=== PATIENT | female | born 1995 | race Caucasian/White ===

== ENCOUNTER 2019-02-14 12:16 | Emergency (ER) | payer OTHER ==
[~2019-02-14] VITALS: Ht 170.2 cm; Wt 122.8 kg
[2019-02-14 12:17] VITALS: BP 135/78
--- NOTE | 2019-02-14 14:27 | REP ---
RIGHT FOOT, TWO VIEWS: There is no evidence of an acute fracture, dislocation or intrinsic bone disease. IMPRESSION: No fracture or dislocation. Electronically Signed by Thaddeus Ramsey MD 02/15/2019 12:01 A
--- NOTE | 2019-02-14 14:28 | REP ---
RIGHT FOREARM, TWO VIEWS: There is no evidence of an acute fracture, dislocation or intrinsic bone disease. IMPRESSION: No fracture or dislocation. Electronically Signed by Thaddeus Ramsey MD 02/15/2019 12:01 A
== END 2019-02-14 14:17 | disposition home or self-care (01) ==
LOC: M ED 12:16
DX: O9A.211 Injury, poisoning and certain other consequences of external causes complicating pregnancy, first trimester (principal); S90.31XA Contusion of right foot, initial encounter; S59.912A Unspecified injury of left forearm, initial encounter; W01.198A Fall on same level from slipping, tripping and stumbling with subsequent striking against other object, initial encounter; Y92.098 Other place in other non-institutional residence as the place of occurrence of the external cause; Y93.K1 Activity, walking an animal; Z3A.13 13 weeks gestation of pregnancy; Z91.041 Radiographic dye allergy status

== ENCOUNTER 2019-08-05 14:50 | Inpatient (IN) | payer OTHER ==
[~2019-08-05] VITALS: Ht 170.2 cm; Wt 146.3 kg
[2019-08-05] VITALS (35 sets, daily range): BP systolic 138–170; BP diastolic 78–104
[2019-08-05] MEDS ORDERED: PRENTAB9 PO (15:17)
[2019-08-05 16:27] LABS: HEMATOCRIT 36.8 % (36.0-47.0); HEMOGLOBIN 11.7 g/dl (12.0-15.5); MEAN CORPUSCULAR HEMOGLOBIN 27.4 pg (27.0-33.0); MEAN CORPUSCULAR HGB CONC 31.8 g/dl (32.0-36.5); MEAN CORPUSCULAR VOLUME 86.2 fl (80.0-96.0); PLATELET COUNT, AUTOMATED 272 10^3/uL (150-450); RED BLOOD COUNT 4.27 10^6/uL (4.00-5.40)
[2019-08-05 16:59] LABS: CREATININE,RANDOM URINE 39.2 MG/DL; TOTAL PROTEIN,RANDOM URINE 249.4 MG/DL (0.0-12.0)
[2019-08-05 17:05] LABS: ALT/SGPT 12 U/L (12-78); BILIRUBIN,TOTAL < 0.1 MG/DL (0.2-1.0); CREATININE FOR GFR 0.99 MG/DL (0.55-1.30); GLOMERULAR FILTRATION RATE > 60.0 (>60); LDH LACTATE DEHYDROGENASE 171 U/L (84-246); URIC ACID 7.8 MG/DL (2.6-6.0)
[2019-08-05] MEDS ORDERED: MAG Sulf (L&D) 4 GM/100 ML 4 GM in IV 1 EA IV ONE (17:15)
[2019-08-05] MEDS ORDERED: CALCIUM GLUCONATE 1,000 MG in D5W MINI-BAG PLUS 100 ML IV PRN (17:15)
[2019-08-05] MEDS ORDERED: MAGNESIUM *L&D* 4 GM/100 ML BAG (40MG/ML) (J3475) As Ordered ONE (17:16)
[2019-08-05] MEDS ORDERED: MAGNESIUM SULFATE 4% INJ 20GM/500ML (40MG/ML) (J3475) As Ordered ONE (17:17)
[2019-08-05] MEDS: LR 1,000 ML IV SCH (17:26)
[2019-08-05] MEDS: MAG Sulf (OBGYN) 20GM/500ML 20,000 MG in IV 1 EA IV SCH (18:04)
[2019-08-05] MEDS: ACETAMINOPHEN 500 MG TAB PO PRN (18:52)
[2019-08-05] MEDS ORDERED: LABETALOL HCL 100 MG/20 ML VIAL IV STA (19:09)
[2019-08-05] MEDS ORDERED: OXYTOCIN DRIP 30 UNITS in IV 1 EA IV SCH (19:15)
--- NOTE | 2019-08-05 21:02 | IPN ---
DATE: 08/05/2019 This lady was admitted with a history of severe range blood pressures and preeclampsia (pre E). She has been medicated with magnesium (mag) sulfate, Cobb catheter in place, one episodic elevated blood pressure got her 20 mg of labetalol IV. Now that she has quieted down and stabilized her blood pressures, pelvic examination reveals little pinky show, vertex is -3 but 70% effaced. Surprisingly, vertex thin, cervix 2 cm dilated. She is very favorable for Pitocin. We did not put a Cobb bulb in as we did not want to over stimulate her at the present time. We discussed pain management in the form of epidural, and we will adhere to the hypertensive protocol if required for the next IV antihypertensive medications. Last blood pressure was 152/85, respirations 18, heart rate was 99.
[2019-08-06] VITALS (77 sets, daily range): BP systolic 83–161; BP diastolic 48–100
[2019-08-06] MEDS: ACETAMINOPHEN 500 MG TAB PO PRN ×2 (00:25→06:39)
[2019-08-06 00:31] LABS: HEMATOCRIT 34.7 % (36.0-47.0); HEMOGLOBIN 11.3 g/dl (12.0-15.5); MEAN CORPUSCULAR HGB CONC 32.6 g/dl (32.0-36.5); MEAN CORPUSCULAR VOLUME 86.1 fl (80.0-96.0); PLATELET COUNT, AUTOMATED 252 10^3/uL (150-450); RED BLOOD COUNT 4.03 10^6/uL (4.00-5.40); WHITE BLOOD COUNT 13.7 10^3/uL (4.0-10.0)
[2019-08-06] MEDS: MAG Sulf (OBGYN) 20GM/500ML 20,000 MG in IV 1 EA IV SCH ×2 (02:37→12:25)
[2019-08-06] MEDS: LR 1,000 ML IV SCH ×3 (06:17→17:08)
--- NOTE | 2019-08-06 08:42 | HPE ---
DATE OF ADMISSION: 08/05/2019 This lady is a 23-year-old, 1, para 0, last menstrual period (LMP) 11/11/2018, estimated date of confinement (EDC) 08/18/2019, at 38 and 2 weeks of gestation with a history of an elevated blood pressure at her visit, which was 143/103 and 171/106. She had a mild headache. No visual disturbances. No right upper quadrant pain. She was sent to labor and delivery. On admission, her blood pressure is 164/104, respirations are 18, pulse 101, and temperature is 98.4. She had suggested features of pre eclampsia (E) with possibly a seizure component eminent because of elevated blood pressure. She did have some erratic movements of her hands and legs but those were sporadic in nature. Her risk factors are her body mass index (BMI) is 50.5, she has signs of severe pre E with severe range blood pressures. She has an elevated 1-hour blood glucose and she had a 3-hour DROP. She was not monitoring her blood sugars. 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 The baby was at the 62nd percentile for gestational age and it was 2846 grams +/- 500 grams confirming her WADE of 08/18/2019. Amniotic fluid index was normal, 18.69. Her lab values showed ranges of her blood pressure in her stay from 1600 hours to 1900 hours of 143/92, 158/97, 146/78, 146/86. She had a 150/92, 170/104 when they attempted to put the Cobb catheter in, 144/89, 164/87. She had 20 mg of labetalol IV when she had an elevated blood pressure 164 /94 and subsequent blood pressure monitoring 10 minutes and 15 minutes later blood pressure was 147/82 and 147/79. She had a mild headache, for which she was given Tylenol 1000 mg. Her urine was 1.005, pH of 7, and 3+ protein. Her hemoglobin 11.7, hematocrit 36.8, and platelets were 272. Uric acid was 7.8. GFR was greater than 60. Liver function was normal. Her ytgofgm-at-pemkusncjm (P/C) ratio was 6.36. On examination, she did not appear distressed. She did not have any aura or visual disturbances. She had no right upper quadrant pain. She has quite dependent edema in her abdomen somewhat like peau d'orange secondary to her weight and her increased weight gain of 22 pounds over the last few weeks. She has bilateral edema from her ankles to her knees. She has 3+ pitting edema on both sides. Reflexes upper were normal, lower were normal, but she does have 2 beats of clonus on her left and 3 beats of clonus on her right. Presently, she has a category 1 strip. No vaginal loss or bleeding. Pelvic examination is deferred until the magnesium (mag) sulfate is on board and running. Our differential diagnosis is that she has preeclampsia with severe blood pressure features, she is at 38 weeks, ultrasound shows anomalies. Our plan of care is to admit for induction of labor, initiate hypertensive protocol for blood pressures 160/100, monitor reflexes for increase in clonus, have available at the bedside suction oxygen, have a crash cart, anesthetic cart at the bedside, Cobb catheter inserted and urometer monitoring urine flow and notify if it is less than 30 mL/h. Medications for her headache in the form Tylenol. Limited activity with subdued lighting. Sequentials in place. Two lines of a hemorrhage that she has hemorrhaged are times two, one for IV meds and one in case needed. Nothing by mouth at the present time. Mag sulfate was initiated with 4 grams of a loading dose and 2 gm/h. We will monitor her mag level on a 4 hourly basis, as well as her complete blood count (CBC) in order to evaluate if there is a suggestion of hemolysis, elevated liver enzymes, low platelet count (HELLP) syndrome or disseminated intravascular coagulation (DIC) or any progression in her preeclampsia. We notified anesthesia with intubation and tubes present and available. We notified neonatology regarding two-vessel cord and clubfoot. We initiated the hypertensive protocol hemorrhage, risk protocol, seizure protocol. Pharmacies been notified, and we have diazepam in place 5-10 mg IV every 5-10 with a maximum of 30, Ativan 2-4 mg times one with one repeat. We can still initiate 2 grams of mag sulfate slow if she has still protracted seizures. If she has persistent seizures intubation will take place, and at the present time, induction of labor is indicated. section is not an initial indication because of severe preeclampsia at this present time. We are planning on having a mag level being therapeutic between 5-9, initiating patellar reflexes, if they are greater than 9 will cut back the mag. If there is respiratory distress or paralysis, obviously she is over 12 mg/dL. We discussed the plan of care with the patient and her . Initially, we talked about consent for vaginal delivery, which is a possible vaginal delivery, and forceps or vacuum or devices used for maternal or indications that can assist with vaginal delivery when normal pushing efforts cannot achieve delivery on their own or when delivery is needed in emergency for baby's well-being, medications used to induce or augment labor could be possibly Pitocin, Cytotec, Cobb bulb with Cytotec which will be evaluated as a method of induction of labor shortly. At delivery, she may have an episiotomy or may have lacerations or tears of the vagina that may require repair in emergency situations such as seizure activity. She may have an emergency section, which we are discussing at the present time because if intubation takes place will no longer be able to communicate that to her but to her partner, and of course is only performed for maternal or indications. Risk of delivery is not limited to bleeding, infection, injury to the vagina, pelvic structures, injury to baby, damage to the uterus, reaction to anesthesia, uterine rupture, risk of hysterectomy for life-threatening bleeding situations, heart rate abnormalities, perineal or vaginal lacerations, risk of urinary bowel incontinence, and risk to the baby regarding bruising, scratches, hematomas or intracranial bleed. The patient expressed understanding of the plan of care and the risk factors involved. The rest of the examination was unremarkable. She had a category 1 strip. She was normocephalic, atraumatic. Neck full range of motion. Pupils were equal and reactive to light. She had distal pulses that were symmetric. No evidence of deep venous thrombosis (DVT), pulmonary embolism (PE) or superficial phlebitis. Chest was clear bilaterally to bases. No wheezes or rhonchi. No costovertebral angle (CVA) tenderness. Abdomen as described. Pelvic examination deferred until later. She has no rashes, lesions or pruritus. She does have tattoos. No arthralgia, myalgia or complaint joint pain. No complaint of cough, wheeze, shortness breath or dyspnea on exertion. No bruising. Not bleeding. Neuro complete. No incontinency, urgency or frequency. No nausea, vomiting, diarrhea or constipation. It is suggested that with her elevated 3-hour GTT that she have a glucose evaluation. She has never had an abnormal Pap smear and no evidence sexually transmitted disease (STD). She did have a urinary tract infection (UTI) with E-coli treated and test of cure is pending. She has does not smoke, drink, abuse drugs. 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 No domestic violence. She has ALLERGIES to IVP DYE. In summary, we have an early term gestation with evidence of severe range blood pressures and a history of preeclampsia for monitoring and induction of labor. We spent well over an hour and 30 minutes in evaluation, discussion, and patient expressed understanding the plan of care.
[2019-08-06 09:41] LABS: HEMATOCRIT 33.4 % (36.0-47.0); HEMOGLOBIN 10.5 g/dl (12.0-15.5); MEAN CORPUSCULAR HEMOGLOBIN 27.3 pg (27.0-33.0); MEAN CORPUSCULAR HGB CONC 31.4 g/dl (32.0-36.5); MEAN CORPUSCULAR VOLUME 86.8 fl (80.0-96.0); PLATELET COUNT, AUTOMATED 247 10^3/uL (150-450); RED BLOOD COUNT 3.85 10^6/uL (4.00-5.40); WHITE BLOOD COUNT 14.1 10^3/uL (4.0-10.0)
[2019-08-06] MEDS ORDERED: FENTANYL 2MCG/ML ROPIVACAINE 0.2% IN 0.9% NACL 100ML IVBAG As Ordered ONE (09:47)
[2019-08-06 10:13] LABS: ALBUMIN 1.7 GM/DL (3.2-5.2); ALT/SGPT 12 U/L (12-78); BLOOD UREA NITROGEN 11 MG/DL (7-18); CALCIUM LEVEL 7.7 MG/DL (8.5-10.1); CARBON DIOXIDE LEVEL 21 MEQ/L (21-32); CHLORIDE LEVEL 103 MEQ/L (98-107); CREATININE FOR GFR 1.16 MG/DL (0.55-1.30); GLOMERULAR FILTRATION RATE > 60.0 (>60); GLUCOSE, FASTING 124 MG/DL (70-100); POTASSIUM SERUM 3.9 MEQ/L (3.5-5.1); SODIUM LEVEL 136 MEQ/L (136-145); TOTAL PROTEIN 5.7 GM/DL (6.4-8.2)
[2019-08-06] MEDS: FENTANYL/ROPIVACAINE/NACL BAG 100 ML EPIDURAL SCH ×2 (10:48→22:00)
[2019-08-06 10:52] LABS: BILIRUBIN,TOTAL < 0.1 MG/DL (0.2-1.0)
--- NOTE | 2019-08-06 11:04 | IPN ---
DATE: 08/06/2019 This lady was admitted with a history of mid to severe range blood pressures, headache, no visual disturbances, and a diagnosis of preeclampsia with severe features. She was admitted and had full hypertensive protocol, full hemorrhage protocol and full seizure protocol. She was given one lot of labetalol IV and subsequent to that her blood pressures have normalized, and since 0300 hours her blood pressures have all been normal ranging from 119/60 to 120/62 to 122/66 to 109/70 to 122/68. She has been afebrile throughout. She has been on Pitocin. She is at 20 milliunits, and she is feeling moderate contractions. She has a category 1 strip, and she has had a total urine output of 1795 and her hourly output lowest is 30, and after that she began to diurese. Our plan is to continue with the Pitocin with epidural in place to do an artifical rupture of membranes (AROM), and we anticipate some progress. In summary, we have a 38+ week of gestation was admitted with severe range blood pressures and all protocols were initiated safe to proceed.
[2019-08-06] MEDS ORDERED: REFRIGERATOR IV KEYS XX PRN (12:00)
[2019-08-06] MEDS ORDERED: LACTATED RINGER'S 1000 ML IV PRN (12:00)
[2019-08-06] MEDS ORDERED: diphenhydrAMINE INJ 50MG/ML VIAL (J1200) IV PRN ×2 (12:00→22:48)
[2019-08-06] MEDS ORDERED: EPIDURAL COMMENT XX SCH (12:00)
[2019-08-06] MEDS ORDERED: ePHEDrine SULFATE 25 MG/5 ML(5MG/ML) SYRINGE IV PRN (12:00)
[2019-08-06] MEDS ORDERED: ONDANSETRON 4MG/2ML VIAL (J2405) IV PRN ×2 (12:00→22:48)
[2019-08-06] MEDS ORDERED: EPIDURAL/PCA KEYS XX PRN (12:00)
[2019-08-06] MEDS ORDERED: NALOXONE INJ 0.4 MG/1 ML VIAL (J2310) IV PRN ×3 (12:00→22:48)
[2019-08-06] MEDS ORDERED: OXYTOCIN 30 UNITS IN 0.9% NaCl 500ML IV BAG (J2590) As Ordered ONE (22:05)
[2019-08-06] MEDS ORDERED: LIDOCAINE 2% W/EPIN INJ 20ML **PRES FREE As Ordered ONE (22:20)
[2019-08-06] MEDS ORDERED: ONDANSETRON 4MG/2ML VIAL (J2405) As Ordered ONE (22:20)
[2019-08-06] MEDS ORDERED: fentaNYL 100 MCG/2 ML INJECTION (J3010) As Ordered ONE (22:23)
[2019-08-06] MEDS ORDERED: ceFAZolin 1GM INJ (J0690 PER 500MG) As Ordered ONE (22:25)
[2019-08-06] MEDS ORDERED: OXYTOCIN INJ 10 UNITS/ML VIAL (J2590) As Ordered ONE (22:25)
[2019-08-06] MEDS ORDERED: AZITHROMYCIN INJ 500MG VIAL (J0456) As Ordered ONE (22:26)
[2019-08-06] MEDS ORDERED: AZITHROMYCIN INJ 500 MG, VIAL MATE ADAPTER 1 EACH in D5W 250 ML IV ONE (22:30)
[2019-08-06] MEDS ORDERED: BICITRA 30ML SOLN UDC PO ONE (22:30)
[2019-08-06] MEDS ORDERED: ceFAZolin SOD 2 GM in IV 1 EA IV ONE (22:30)
[2019-08-06] MEDS ORDERED: ceFAZolin SOD 1 GM in D5W MINI-BAG PLUS 50 ML IV ONE (22:45)
[2019-08-06] MEDS ORDERED: NALBUPHINE HCL 10 MG/ML AMP (J2300) IV PRN (22:48)
[2019-08-06] MEDS ORDERED: METOCLOPRAMIDE INJ 10MG/2ML VIAL (J2765) IV PRN (22:48)
[2019-08-06 23:38] LABS: CORD GAS ABE A -4.7; CORD GAS HCO3 A 25.8 MEQ/L; CORD GAS O2 SAT A 28.5 %; CORD GAS PCO2 A 69.3 mmHg; CORD GAS PH A 7.188 UNITS; CORD GAS PO2 A 16.5 mmHg; CORD GAS SBC A 18.8 MEQ/L; CORD GAS TCO2 A 27.9 MEQ/L
[2019-08-06 23:39] LABS: CORD GAS ABE V -5.7; CORD GAS HCO3 V 22.6 MEQ/L; CORD GAS O2 SAT V 65.3 %; CORD GAS PCO2 V 53.7 mmHg; CORD GAS PH V 7.242 UNITS; CORD GAS PO2 V 31.2 mmHg; CORD GAS TCO2 V 24.2 MEQ/L
[2019-08-06] MEDS ORDERED: miSOPROStol 200 MCG TAB (S0191) As Ordered ONE (23:50)
[2019-08-07] VITALS (37 sets, daily range): BP systolic 108–156; BP diastolic 52–96
[2019-08-07] MEDS ORDERED: MORPHINE PRES-FREE INJ 10 MG/10 ML VIAL (J2274) As Ordered ONE (00:03)
[2019-08-07] MEDS ORDERED: PHENYLephrine HCL 500 MCG/5 ML (100MCG/ML) SYRINGE (J2370) As Ordered ONE (00:19)
[2019-08-07] MEDS ORDERED: ePHEDrine SULFATE 25 MG/5 ML(5MG/ML) SYRINGE As Ordered ONE (00:19)
[2019-08-07] MEDS ORDERED: fentaNYL 100 MCG/2 ML INJECTION (J3010) IV PRN (00:30)
[2019-08-07] MEDS ORDERED: PERCOCET 5MG/325MG TAB PO PRN ×2 (00:30→01:00)
[2019-08-07] MEDS ORDERED: ONDANSETRON 4MG/2ML VIAL (J2405) IV PRN (00:30)
[2019-08-07] MEDS ORDERED: METOCLOPRAMIDE INJ 10MG/2ML VIAL (J2765) IV PRN (00:30)
[2019-08-07] MEDS ORDERED: LR 1,000 ML IV SCH (00:30)
[2019-08-07] MEDS ORDERED: OXYTOCIN DRIP 30 UNITS in IV 1 EA IV SCH (00:48)
[2019-08-07] MEDS ORDERED: MEASLES,MUMPS,RUBELLA VACCINE INJ (MMR-II) (90707) SC SCH (01:00)
[2019-08-07] MEDS ORDERED: RHOGAM 300 MCG (1500 IU) INJ (J2790) IM SCH (01:00)
[2019-08-07] MEDS ORDERED: miSOPROStol 200 MCG TAB (S0191) PR ONE (01:00)
[2019-08-07] MEDS ORDERED: fentaNYL 100 MCG/2 ML INJECTION (J3010) As Ordered ONE (01:12)
[2019-08-07] MEDS ORDERED: PERCOCET 5MG/325MG TAB As Ordered ONE (01:45)
[2019-08-07] MEDS: LR 1,000 ML IV SCH ×3 (03:49→23:45)
[2019-08-07] MEDS: MAG SULF IV SCH ×2 (03:49→21:00)
[2019-08-07] MEDS: KETOROLAC 30 MG/ML VIAL (J1885) IV SCH ×3 (03:50→18:04)
[2019-08-07] MEDS: ENOXAPARIN 40 MG/0.4 ML SYRINGE (J1650) SC SCH ×2 (05:33→17:24)
[2019-08-07 08:16] LABS: HEMATOCRIT 32.4 % (36.0-47.0); HEMOGLOBIN 10.4 g/dl (12.0-15.5); MEAN CORPUSCULAR HEMOGLOBIN 27.8 pg (27.0-33.0); MEAN CORPUSCULAR HGB CONC 32.1 g/dl (32.0-36.5); MEAN CORPUSCULAR VOLUME 86.6 fl (80.0-96.0); PLATELET COUNT, AUTOMATED 252 10^3/uL (150-450); RED BLOOD COUNT 3.74 10^6/uL (4.00-5.40); WHITE BLOOD COUNT 17.6 10^3/uL (4.0-10.0)
[2019-08-07] MEDS: DOCUSATE SODIUM 100 MG CAP PO SCH ×2 (08:57→21:23)
[2019-08-07] MEDS: PRENATAL VITAMINS CHEWABLE TABLET PO SCH (08:57)
[2019-08-07 08:59] LABS: ALBUMIN 1.7 GM/DL (3.2-5.2); BILIRUBIN,TOTAL 0.1 MG/DL (0.2-1.0); CALCIUM LEVEL 6.8 MG/DL (8.5-10.1); CREATININE FOR GFR 1.25 MG/DL (0.55-1.30); GLOMERULAR FILTRATION RATE 56.1 (>60); POTASSIUM SERUM 4.7 MEQ/L (3.5-5.1); TOTAL PROTEIN 4.8 GM/DL (6.4-8.2)
[2019-08-07] MEDS ORDERED: LACTATED RINGER'S 1000 ML IV ONE (11:30)
--- NOTE | 2019-08-07 12:25 | IPNPDOC ---
Progress Note Date of Service: Aug 07, 2019 Day#: 1 Progress Note POD/PPD 1 SUBJECT: Dane is a 23yo s/p uncomplicated PLTCS at 23:27 on 08/06/2019 for arrest of descent while undergoing IOL for pre-eclampsia with severe features based on severe range bp's (which normalized with initiation of IV MgSO4) and urine:protein of 6.36 as well as creatinine 0.99 and uric acid 7.8. Significantly, her BMI is 50. She is currently receiving 24hr IV MgSO4 on L&D, and is doing well day # 1. EBL was 700ml. She has not yet ambulated (bedrest while on MgSO4), has gomez catheter in place draining yellow clear urine, and she has tolerated liquids thus far. No ESCOBAR/vision changes/RUQ pain. Breast feeding without issue. Light/moderate lochia. Pain so far is very well controlled. No f/c/n/v/CP/SOB. OBJECTIVE: VITAL SIGNS: Within normal limits, afebrile. Alert and oriented times three. Abdomen: Obese. Fundus firm at U. Soft, appropriately tender to palpation with NO rebound/guarding. Pfannensteil incision is covered by clean/dry optifoam dressing with tiny area of strikethrough in the center of the dressing. Extremities: SCDs on and functioning, no pain with palpation of calves UOP: recently 60cc --> 45cc --> 30cc Labs: 08/05: WBC 13, H/H 16.7/36.8, plt 272 creatinine 0.99 and uric acid 7.8 LFTs wnl 08/06: WBC 14.1, H/H 10.5/33.4, plt 247 creatinine 1.16 LFTs wnl 08/07: WBC 17.6, H/H 10.4/32.4, plt 252 creatinine 1.25 LFTs wnl ASSESSMENT: Dane is a 23yo s/p uncomplicated PLTCS at 23:27 on 08/06/2019 for arrest of descent while undergoing IOL for pre-eclampsia with severe features. Significantly, her BMI is 50. She is currently receiving 24hr IV MgSO4 on L&D, and is doing well day # 1. BP has been normotensive to rare mild range, afebrile, hemodynamically stable with no evidence of infection. No s/sx of worsening pre-E. Urine output has been dropping off a bit recently, patient encouraged to increase PO hydration and she is receiving IVF with the MgSO4, her creatinine is also very slightly increasing over her admission. PLAN: 1. Routine and post-op care, continue IV MgSO4 on L&D until 24hr /post-op. Neuro checks. 2. Toradol (then Motrin) and prn percocet for pain. 3. Lovenox 40mg BID for prophylaxis given patient's BMI and post-op status 4. Eye to urine output today and creatinine. Remove gomez catheter when MgSO4 is discontinued with 4hr due to void 5. Encourage breast feeding 6. CBC and CMP q12hr 7. Regular diet 8. Pt has optifoam dressing which will stay in place for [address] Aissatou Sotelo MD VS, I&O, 24H, Fishbone Vital Signs/I&O Vital Signs Date Time Temp Pulse Resp B/P (MAP) Pulse Ox O2 Delivery O2 Flow Rate FiO2 08/07/19 11:08 98.1 82 16 117/55 (75) 08/07/19 01:52 100 08/07/19 00:38 Room Air I&O- Last 24 Hours up to 6 AM 08/07/19 06:00 Intake Total 3798.0 ml Output Total 3770 ml Balance 28.0 ml Laboratory Data 24H LABS Laboratory Tests 2 08/06/19 23:29: Cord Arterial Blood pH 7.188, Cord Arterial Blood PCO2 69.3, Cord Arterial Blood PO2 16.5, Cord Arterial Blood HCO3 25.8, Cord Arterial Blood Total CO2 27.9, Cord Arterial Blood Base Excess -4.7, Cord Arterial Base Excess (Standard 18.8, Cord Arterial Bld Oxygen Saturation 28.5, Cord Venous Blood pH 7.242, Cord Venous Blood PCO2 53.7, Cord Venous Blood PO2 31.2, Cord Venous Blood HCO3 22.6, Cord Venous Blood Total CO2 24.2, Cord Venous Base Excess (Actual) -5.7, Cord Venous Base Excess (Standard) 19.0, Cord Venous Blood Oxygen Saturation 65.3 08/07/19 08:05: Nucleated Red Blood Cells % (auto) 0.0, Anion Gap 13, Glomerular Filtration Rate 56.1L, Calcium Level 6.8L, Total Bilirubin 0.1L, Aspartate Amino Transf (AST/SGOT) 22, Alanine Aminotransferase (ALT/SGPT) 15, Alkaline Phosphatase 118H, Total Protein 4.8L, Albumin 1.7L, Albumin/Globulin Ratio 0.55L CBC/BMP Laboratory Tests 08/07/19 08:05 Aissatou Sotelo MD Aug 07, 2019 12:25
--- NOTE | 2019-08-07 12:50 | IPNPDOC ---
Text Note Date of Service The patient was seen on 08/07/19. NOTE LATE ENTRY FOR INTRAPARTUM CHARTING DUE TO BUSY L&D, CLINIC, AND CALL PAGER ON 08/06. FOR ENCOUNTER NOTE FOR TODAY, SEE PROGRESS NOTE I accepted care of Dane AT 07:30 on 08/[address] Irizarry. In brief, (when I assumed care), pt was a 23yo undergoing IOL for pre- eclampsia with severe features based on severe range bp's (which normalized with initiation of IV MgSO4) and urine:protein of 6.36 as well as creatinine 0.99 and uric acid 7.8 (LFTs were wnl). Significantly, her BMI is 50. She was undergoing IOL with IV pitocin. Over the course of the day, she progressed with pitocin and amniotomy (receiving epidural in labor) to C/C/0 at which point she began pushing. FSE and IUPC had been placed with amniotomy given her body habitus. FHRT remained Cat I throughout her labor course. Amniotic fluid was always clear. She never required any IV anti-hypertensive medications beyond the one dose she was previously ordered by Dr. Irizarry. Patient pushed with good maternal effort for over 2hr altogether and had no further gain in station beyond C/C/0, at which point I counseled her regarding need for a section. We went over the consent form for both PLTCS and possible blood transfusion, fully discussing all r/b/a, and both patie nt and I signed the consent forms. She was given 3g IV anceph and 500mg IV azithromycin for pre-op abx prophylaxis. Dr. Padilla was present to assist me for the surgery and the surgery was uncomplicated. See my dictated operative report for further details. MD GEOVANI Ames Fishbone, I+O Jesusita OLIVO I+O Laboratory Tests 08/07/19 08:05 Vital Signs Date Time Temp Pulse Resp B/P (MAP) Pulse Ox O2 Delivery O2 Flow Rate FiO2 08/07/19 11:08 98.1 82 16 117/55 (75) 08/07/19 01:52 100 08/07/19 00:38 Room Air I&O- Last 24 Hours up to 6 AM 08/07/19 06:00 Intake Total 3798.0 ml Output Total 3770 ml Balance 28.0 ml Aissatou Sotelo MD Aug 07, 2019 12:50
[2019-08-07 18:29] LABS: HEMATOCRIT 29.5 % (36.0-47.0); HEMOGLOBIN 9.3 g/dl (12.0-15.5); MEAN CORPUSCULAR HEMOGLOBIN 27.5 pg (27.0-33.0); MEAN CORPUSCULAR HGB CONC 31.5 g/dl (32.0-36.5); MEAN CORPUSCULAR VOLUME 87.3 fl (80.0-96.0); PLATELET COUNT, AUTOMATED 212 10^3/uL (150-450); RED BLOOD COUNT 3.38 10^6/uL (4.00-5.40); WHITE BLOOD COUNT 12.5 10^3/uL (4.0-10.0)
[2019-08-07 18:53] LABS: ALBUMIN 1.6 GM/DL (3.2-5.2); BILIRUBIN,TOTAL 0.1 MG/DL (0.2-1.0); CREATININE FOR GFR 1.19 MG/DL (0.55-1.30); GLOMERULAR FILTRATION RATE 59.3 (>60); POTASSIUM SERUM 4.2 MEQ/L (3.5-5.1); TOTAL PROTEIN 4.7 GM/DL (6.4-8.2); URIC ACID 9.3 MG/DL (2.6-6.0)
[2019-08-07 20:02] LABS: ALBUMIN 1.6 GM/DL (3.2-5.2); ALT/SGPT 13 U/L (12-78); BLOOD UREA NITROGEN 14 MG/DL (7-18); CALCIUM LEVEL 6.2 MG/DL (8.5-10.1); CARBON DIOXIDE LEVEL 22 MEQ/L (21-32); CHLORIDE LEVEL 100 MEQ/L (98-107); CREATININE FOR GFR 1.31 MG/DL (0.55-1.30); GLOMERULAR FILTRATION RATE 53.1 (>60); GLUCOSE, FASTING 120 MG/DL (70-100); SODIUM LEVEL 133 MEQ/L (136-145); TOTAL PROTEIN 5.4 GM/DL (6.4-8.2)
[2019-08-08] MEDS: KETOROLAC 30 MG/ML VIAL (J1885) IV SCH (00:33)
[2019-08-08 02:25] VITALS: BP 116/58
[2019-08-08] MEDS: ACETAMINOPHEN 500 MG TAB PO PRN (02:33)
[2019-08-08 04:27] LABS: BILIRUBIN,TOTAL < 0.1 MG/DL (0.2-1.0)
[2019-08-08] MEDS: ENOXAPARIN 40 MG/0.4 ML SYRINGE (J1650) SC SCH ×2 (05:28→16:50)
[2019-08-08 06:00] VITALS: BP 118/65
[2019-08-08 06:45] LABS: HEMATOCRIT 28.6 % (36.0-47.0); MEAN CORPUSCULAR HEMOGLOBIN 27.6 pg (27.0-33.0); MEAN CORPUSCULAR HGB CONC 31.5 g/dl (32.0-36.5); MEAN CORPUSCULAR VOLUME 87.7 fl (80.0-96.0); PLATELET COUNT, AUTOMATED 215 10^3/uL (150-450); RED BLOOD COUNT 3.26 10^6/uL (4.00-5.40); WHITE BLOOD COUNT 11.6 10^3/uL (4.0-10.0)
[2019-08-08 07:12] LABS: ALBUMIN 1.5 GM/DL (3.2-5.2); ALT/SGPT 15 U/L (12-78); BILIRUBIN,TOTAL 0.1 MG/DL (0.2-1.0); BLOOD UREA NITROGEN 14 MG/DL (7-18); CALCIUM LEVEL 5.9 MG/DL (8.5-10.1); CARBON DIOXIDE LEVEL 23 MEQ/L (21-32); CHLORIDE LEVEL 104 MEQ/L (98-107); CREATININE FOR GFR 1.06 MG/DL (0.55-1.30); GLOMERULAR FILTRATION RATE > 60.0 (>60); GLUCOSE, FASTING 77 MG/DL (70-100); POTASSIUM SERUM 4.2 MEQ/L (3.5-5.1); SODIUM LEVEL 136 MEQ/L (136-145); TOTAL PROTEIN 4.3 GM/DL (6.4-8.2)
[2019-08-08] MEDS: IBUPROFEN 800 MG TAB PO SCH ×2 (08:26→16:49)
[2019-08-08] MEDS: PRENATAL VITAMINS CHEWABLE TABLET PO SCH (08:26)
[2019-08-08] MEDS: DOCUSATE SODIUM 100 MG CAP PO SCH ×2 (08:26→23:22)
--- NOTE | 2019-08-08 09:37 | IPNPDOC ---
Progress Note Date of Service: Aug 08, 2019 Progress Note Dane is a 23 yo G1 now P1 who is POD#2 s/p uncomplicated PLTCS just before midnight on 06Aug2019 for arrest of descent after being admitted for an IOL for pre eclampsia with severe features. She completed 24 hours of IV magnesium last night ~0000. No acute events overnight. Dane reports feeling well this morning. She denies any headaches, RUQ pain, visual changes, or SOB. She has minimal pain at her incision. She is ambulating, voiding on her own, and tolerating a regular diet. She has had minimal lochia. Vitals - VSS, BPs mostly normal, occasionally mildly elevated, afebrile, non tachycardic General - AAOX3, sitting up in the chair at eating, pleasant and conversant, NAD Abdomen - Fundus firm at U-2. No fundal tenderness. Optifoam dressing in place over incision. Small area of strikethrough but not significant. Minimal t enderness to palpation. Extremities - 1+ edema in lower extremities UO - appropriate, voiding on own Labs: H/H and platelets stable Cr improving AST/ALT normal Dane is doing well this morning. Continue routine / postoperative care. Continue to encourage ambulation and IS use. Continue daily lovenox while inpatient. If BP remains stable and she meets all criteria she may be a c andidate for discharge home tomorrow. All questions answered. Tonay Cunha, VS, I&O, 24H, Jesusita Vital Signs/I&O Vital Signs Date Time Temp Pulse Resp B/P (MAP) Pulse Ox O2 Delivery O2 Flow Rate FiO2 08/08/19 06:00 99.7 82 18 118/65 (82) 100 08/07/19 22:10 Room Air I&O- Last 24 Hours up to 6 AM 08/08/19 06:00 Intake Total 4732.8 ml Output Total 1885 ml Balance 2847.8 ml Laboratory Data 24H LABS Laboratory Tests 2 08/07/19 18:12: Nucleated Red Blood Cells % (auto) 0.0, Anion Gap 12, Glomerular Filtration Rate 59.3L, Uric Acid 9.3H, Calcium Level 6.0L, Total Bilirubin 0.1L, Aspartate Amino Transf (AST/SGOT) 23, Alanine Aminotransferase (ALT/SGPT) 13, Alkaline Phosphatase 109, Lactate Dehydrogenase 263H, Total Protein 4.7L, Albumin 1.6L, Albumin/Globulin Ratio 0.52L 08/07/19 19:17: Anion Gap 11, Glomerular Filtration Rate 53.1L, Calcium Level 6.2L, Total Bilirubin < 0.1L, Aspartate Amino Transf (AST/SGOT) 21, Alanine Aminotransferase (ALT/SGPT) 13, Alkaline Phosphatase 108, Total Protein 5.4L, Albumin 1.6L, Albumin/Globulin Ratio 0.42L 08/08/19 06:23: Nucleated Red Blood Cells % (auto) 0.0, Anion Gap 9, Glomerular Filtration Rate > 60.0, Calcium Level 5.9*L, Total Bilirubin 0.1L, Aspartate Amino Transf (AST/SGOT) 35, Alanine Aminotransferase (ALT/SGPT) 15, Alkaline Phosphatase 107, Total Protein 4.3#L, Albumin 1.5L, Albumin/Globulin Ratio 0.54L CBC/BMP Laboratory Tests 08/07/19 18:12 08/07/19 19:17 08/08/19 06:23 TONYA CUNHA DO Aug 08, 2019 09:37
[2019-08-08 09:59] VITALS: BP 130/65
[2019-08-08 17:52] VITALS: BP 128/67
[2019-08-08 22:12] VITALS: BP 161/85
[2019-08-08 22:21] VITALS: BP 144/93
[2019-08-08] MEDS: PERCOCET 5MG/325MG TAB PO PRN (23:23)
[2019-08-09] MEDS: IBUPROFEN 800 MG TAB PO SCH ×3 (01:01→16:59)
[2019-08-09 02:00] VITALS: BP 167/87
[2019-08-09 02:50] VITALS: BP 147/78
[2019-08-09] MEDS: PERCOCET 5MG/325MG TAB PO PRN ×2 (05:50→21:49)
[2019-08-09] MEDS: ENOXAPARIN 40 MG/0.4 ML SYRINGE (J1650) SC SCH ×2 (05:50→16:59)
[2019-08-09 06:00] VITALS: BP 161/81
[2019-08-09 06:57] VITALS: BP 148/75
[2019-08-09] MEDS: PRENATAL VITAMINS CHEWABLE TABLET PO SCH (09:03)
[2019-08-09] MEDS: LABETALOL 100 MG TAB PO SCH ×2 (09:04→21:50)
[2019-08-09] MEDS: DOCUSATE SODIUM 100 MG CAP PO SCH ×2 (09:04→21:50)
--- NOTE | 2019-08-09 09:52 | IPNPDOC ---
Progress Note Date of Service: Aug 09, 2019 Day#: 3 Progress Note POD/PPD 3 SUBJECT: Dane is a 23yo s/p uncomplicated PLTCS at 23:27 on 08/06/2019 for arrest of descent while undergoing IOL for pre-eclampsia with severe features based on severe range bp's (which normalized with initiation of IV MgSO4) and urine:protein of 6.36 as well as creatinine 0.99 and uric acid 7.8. Significantly, her BMI is 50. She received 24hr IV MgSO4 on L&D, and is doing well day # 3. EBL was 700ml. She is ambulating without lightheadedness/dizziness, spontaneously voiding without issue, and she is tolerating regular diet (passing flatus). No ESCOBAR/vision changes/RUQ pain. Bottle feeding by choice without issue. Minimal lochia. Pain so far is very well controlled. No f/c/n/v/CP/SOB. OBJECTIVE: VITAL SIGNS: Within normal limits, afebrile. Alert and oriented times three. Abdomen: Obese. Fundus firm at U-1. Soft, appropriately tender to palpation with NO rebound/guarding. Pfannensteil incision is covered by clean/dry optifoam dressing with tiny area of strikethrough in the center of the dressing, unchanged. Extremities: no pain with palpation of calves, 1+ edema of BLE Labs: 08/05: starting H/H 16.7/36.8, plt 272 starting creatinine 0.99 LFTs wnl 08/06: WBC 14.1, H/H 10.5/33.4, plt 247 creatinine 1.16 LFTs wnl 08/07: WBC 17.6, H/H 10.4/32.4, plt 252 peak creatinine 1.31 LFTs wnl 08/08: WBC 11.6, H/H 9/28.6, plt 215 creatinine 1.06 LFTs wnl ASSESSMENT: Dane is a 23yo s/p uncomplicated PLTCS at 23:27 on 2019 for arrest of descent while undergoing IOL for pre-eclampsia with severe features. Significantly, her BMI is 50. She received 24hr IV MgSO4 , and is doing well day # 3. BP has been mild range with occasional severe range, afebrile, hemodynamically stable with no evidence of infection. No s/sx of worsening pre-E. Creatinine has been improving and plt stable. PLAN: 1. Routine and post-op care 2. Initiate labetalol 200mg PO Q12hr 3. Motrin and prn percocet for pain. 4. Lovenox 40mg BID for prophylaxis given patient's BMI and post-op status 5. Encourage breast feeding 6. Regular diet 7. CBC qam 8. Pt has optifoam dressing which will stay in place for 1 week 9. Possible discharge tomorrow depending on bp control Dr. Aissatou Sotelo MD VS, I&O, 24H, Fishbone Vital Signs/I&O Vital Signs Date Time Temp Pulse Resp B/P (MAP) Pulse Ox O2 Delivery O2 Flow Rate FiO2 08/09/19 09:04 92 148/75 08/09/19 06:20 18 08/09/19 06:00 98.2 08/08/19 17:52 99 08/07/19 22:10 Room Air Aissatou Sotelo MD Aug 09, 2019 09:52
--- NOTE | 2019-08-09 16:05 | RO ---
DATE OF OPERATION: 08/06/2019 STAFF SURGEON: Dr. Aissatou Sotelo GLOBAL SALES MANAGER: Dr. Andra Padilla CLINICAL SERVICE: Obstetrics. INDICATIONS FOR OPERATION: Dane is a 23-year-old, G1, now P1 0-0-, who was admitted at 38 weeks 3 days for induction of labor secondary to preeclampsia with severe features based on elevated blood pressures requiring IV and antihypertensive medications, a tic in her hands, and creatinine value of 0.99, and urine protein creatinine of greater than 4 with other labs being within normal parameters. She underwent induction and augmentation with Pitocin. However, she experienced arrest of descent giving good maternal effort for 2 hours total and moving the baby no further than zero station. PREOPERATIVE DIAGNOSIS: 1. Induction of labor secondary to preeclampsia with severe features at 38 weeks 3 days. 2. Morbid obesity with body mass index (BMI) of 50. 3. Known bilateral clubfeet with two-vessel cord. POSTOPERATIVE DIAGNOSES: 1. Induction of labor secondary to preeclampsia with severe features at 38 weeks 3 days. 2. Morbid obesity with body mass index (BMI) of 50. 3. Known bilateral clubfeet with two-vessel cord. 4. In addition, arrest of descent. MATERIAL FORWARDED TO THE LAB FOR EXAMINATION: Placenta. DESCRIPTION OF FINDINGS: Male infant in cephalic presentation. score 7 and 9. Weight 3520 grams or 7 pounds 12 ounces. Overall normal-appearing uterus, fallopian tubes and ovaries. The infant did have bilateral club feet and two-vessel cord. INFECTION CLASSIFICATION: 2. ESTIMATED BLOOD LOSS: 700 mL. IV FLUIDS: 1 liter. URINE OUTPUT: 100 mL. OPERATION PERFORMED: Primary low transverse section. DESCRIPTION OF OPERATION: After obtaining informed consent, the patient was taken to the operating room. She already had Cobb catheter and bilateral sequential compression devices placed. She was prepped and draped in normal sterile fashion in the dorsal supine position with a left lateral tilt. Time-out was performed to confirm patient name, date of , procedure and indication. Team was in agreement. She received 3 grams of IV Ancef for prophylaxis. Epidural anesthesia was found be adequate using an Allis clamp. A Pfannenstiel skin incision was made with a scalpel carried through to the underlying layer of fascia. The fascia was incised in the midline and the incision was extended laterally with De Leon scissors. Superior and inferior aspects of the fascial incision were grasped with Damaris clamps, elevated and the underlying rectus muscles were dissected off bluntly and sharply. The peritoneum was entered digitally and the rectus muscles were in the midline. The peritoneal incision was extended superiorly and inferiorly with good visualization of the bladder. A bladder blade was inserted and vesicouterine peritoneum was identified, grasped with pickups and entered sharply with Metzenbaum scissors. The incision was then extended laterally and a bladder flap created digitally. At that point, a Mobius self-retaining retractor was placed to assist with retraction. The lower uterine segment was scored in a transverse fashion with a scalpel. The uterus was entered bluntly and the incision was extended with traction. The infant's head was elevated to the level of the incision. Dr. Padilla provided assistance with this using a vaginal hand because the baby was arrested in the pelvis. Fundal pressure was then applied and the head was delivered atraumatically in the occiput anterior (OA) position. Anterior shoulder, posterior shoulder and corpus were delivered without difficulty. Nose and mouth were suctioned with bulb suction. The cord was clamped times two and cut. The was handed off to the awaiting pipe organ installer. The placenta was removed with uterine massage and traction on the umbilical cord, and the uterus was exteriorized and cleared of all clots and debris. The uterine incision was repaired with #0 Vicryl suture in a running locking fashion and a second layer of #0 Monocryl was used to close the hysterotomy incision in imbricating fashion. The uterine incision was inspected and hemostasis was noted. The posterior cul-de-sac was irrigated and the uterus returned to the abdomen. Gutters were cleared of all clots. The peritoneum was closed using #3-0 Vicryl suture in a running fashion. The fascia was reapproximated with #0 Vicryl suture in a running fashion. Subcutaneous tissue was copiously irrigated. Claire fascia was reapproximated using interrupted sutures with #3-0 Vicryl suture in proximally three layers. Skin edges were reapproximated using three inverted interrupted stitches using #3-0 Vicryl suture followed by a running subcuticular stitch using #4-0 Monocryl suture incision. The incision was cleaned using a wet lap, dried with a dry lap. Steri-Strips were applied in the usual fashion perpendicular to the Pfannenstiel incision and Optifoam dressing was applied to the incision. The vagina was cleared of all blood clot without active bleeding noted. 800 mcg of Cytotec were placed rectally for prophylaxis against bleeding given the patient will be receiving 24 hours of magnesium. Fundus was firm at the umbilicus. All counts were correct times two. The procedure was without complications and the patient tolerated the procedure well. She was taken to recovery room on labor delivery in stable condition. She will be receiving prophylactic Lovenox given her BMI in the setting of immobility while receiving the 24 hours of magnesium on labor and delivery.
[2019-08-09 17:35] VITALS: BP 136/81
[2019-08-09 22:00] VITALS: BP 155/93
[2019-08-10] MEDS: IBUPROFEN 800 MG TAB PO SCH ×2 (00:55→08:58)
[2019-08-10] MEDS ORDERED: LABETALOL 200 MG TAB PO ONE (02:00)
[2019-08-10 02:30] VITALS: BP 133/75
[2019-08-10] MEDS: PERCOCET 5MG/325MG TAB PO PRN (02:44)
[2019-08-10] MEDS: ENOXAPARIN 40 MG/0.4 ML SYRINGE (J1650) SC SCH (05:52)
[2019-08-10 06:00] VITALS: BP 127/67
[2019-08-10 07:35] LABS: HEMATOCRIT 24.9 % (36.0-47.0); HEMOGLOBIN 7.7 g/dl (12.0-15.5); MEAN CORPUSCULAR HEMOGLOBIN 27.9 pg (27.0-33.0); MEAN CORPUSCULAR HGB CONC 30.9 g/dl (32.0-36.5); MEAN CORPUSCULAR VOLUME 90.2 fl (80.0-96.0); PLATELET COUNT, AUTOMATED 234 10^3/uL (150-450); RED BLOOD COUNT 2.76 10^6/uL (4.00-5.40); WHITE BLOOD COUNT 11.6 10^3/uL (4.0-10.0)
[2019-08-10 08:18] LABS: ALBUMIN 1.7 GM/DL (3.2-5.2); ALT/SGPT 47 U/L (12-78); BILIRUBIN,TOTAL 0.1 MG/DL (0.2-1.0); BLOOD UREA NITROGEN 8 MG/DL (7-18); CARBON DIOXIDE LEVEL 23 MEQ/L (21-32); CHLORIDE LEVEL 112 MEQ/L (98-107); CREATININE FOR GFR 0.86 MG/DL (0.55-1.30); GLOMERULAR FILTRATION RATE > 60.0 (>60); GLUCOSE, FASTING 89 MG/DL (70-100); POTASSIUM SERUM 4.2 MEQ/L (3.5-5.1); SODIUM LEVEL 143 MEQ/L (136-145); TOTAL PROTEIN 5.4 GM/DL (6.4-8.2)
--- NOTE | 2019-08-10 08:46 | IPNPDOC ---
Progress Note Date of Service: Aug 10, 2019 Day#: 4 Progress Note POD/PPD 4 SUBJECT: Dane is a 23yo s/p uncomplicated PLTCS at 23:27 on 08/06/2019 for arrest of descent while undergoing IOL for pre-eclampsia with severe features based on severe range bp's (which normalized with initiation of IV MgSO4) and urine:protein of 6.36 as well as creatinine 0.99 and uric acid 7.8. Significantly, her BMI is 50. She received 24hr IV MgSO4 on L&D, and is doing well day # 4. EBL was 700ml. She is ambulating without lightheadedness/dizziness, spontaneously voiding without issue, and she is tolerating regular diet (passing flatus). No ESCOBAR/vision changes/RUQ pain. Bottle feeding by choice without issue. Minimal lochia. Pain is very well controlled. No f/c/n/v/CP/SOB. OBJECTIVE: VITAL SIGNS: Within normal limits, afebrile. Alert and oriented times three. Abdomen: Obese. Fundus firm at U-1. Soft, appropriately tender to palpation with NO rebound/guarding. Pfannensteil incision is covered by clean/dry optifoam dressing with tiny area of strikethrough in the center of the dressing, unchanged. Extremities: no pain with palpation of calves, 1+ edema of BLE Labs: 08/05: starting H/H 16.7/36.8, plt 272 starting creatinine 0.99 LFTs wnl 08/06: WBC 14.1, H/H 10.5/33.4, plt 247 creatinine 1.16 LFTs wnl 08/07: WBC 17.6, H/H 10.4/32.4, plt 252 peak creatinine 1.31 LFTs wnl 08/08: WBC 11.6, H/H 9/28.6, plt 215 creatinine 1.06 LFTs wnl 08/09 WBC 11.6, H/H 7.7/24.9, plt 234 creatinine 0.86 AST 58 ALT 47 ASSESSMENT: Dane is a 23yo s/p uncomplicated PLTCS at 23:27 on 08/06/2019 for arrest of descent while undergoing IOL for pre-eclampsia with ramiro re features. Significantly, her BMI is 50. She received 24hr IV MgSO4 , and is doing well day # 4. BP has been normotensive to mild range on labetalol, afebrile, hemodynamically stable with no evidence of infection. No s/sx of worsening pre-E. Creatinine has been improving and plt stable. PLAN: 1. Discharge to home today 2. Follow up in 2 days for bp check in [facility] (and can make a 2wk follow up appt at that time) 3. Continue labetalol 400mg PO Q12hr. Rx to [facility] along with motrin and prn percocet for pain. Also colace for bowel regimen. And iron for anemia. 4. Regular diet 5. Pt has optifoam dressing which will stay in place for 1 week. Discussed to remove in 1 week along with steri strips. After that, keep incision clean and dry. 6. Vaginal rest 6 weeks with no heavy lifting 7. Return precautions discussed at length for pre-E sx, s/sx of infection, s/sx of DVT 8. Discussed contraception at length, patient interested in Mirena IUD which we can discuss further in the office Dr. Aissatou Sotelo MD VS, I&O, [facility] Vital Signs/I&O Vital Signs Date Time Temp Pulse Resp B/P (MAP) Pulse Ox O2 Delivery O2 Flow Rate FiO2 08/10/19 06:00 98.1 94 18 127/67 (87) 97 Room Air Laboratory Data 24H LABS Laboratory Tests 2 08/10/19 07:01: Nucleated Red Blood Cells % (auto) 0.0, Anion Gap 8, Glomerular Filtration Rate > 60.0, Calcium Level 7.0#L, Total Bilirubin 0.1L, Aspartate Amino Transf (AST/SGOT) 58H, Alanine Aminotransferase (ALT/SGPT) 47, Alkaline Phosphatase 100, Total Protein 5.4#L, Albumin 1.7L, Albumin/Globulin Ratio 0.46L CBC/BMP Laboratory Tests 08/10/19 07:01 Aissatou Sotelo MD Aug 10, 2019 08:46
[2019-08-10] MEDS ORDERED: IBUP80TA PO (08:49)
[2019-08-10] MEDS ORDERED: DOCU100C16 PO (08:49)
[2019-08-10] MEDS ORDERED: PERCOCET PO (08:49)
[2019-08-10] MEDS ORDERED: LABE10TAB PO (08:50)
[2019-08-10] MEDS: PRENATAL VITAMINS CHEWABLE TABLET PO SCH (08:55)
[2019-08-10 08:56] VITALS: BP 144/77
[2019-08-10 08:58] VITALS: BP 144/77
[2019-08-10] MEDS: DOCUSATE SODIUM 100 MG CAP PO SCH (08:58)
--- NOTE | 2019-08-10 08:58 | DS.PDOC ---
Discharge Summary General Date of Admission Aug 05, 2019 at 17:10 Date of Discharge Aug 10, 2019 Attending Physician: Aissatou Sotelo MD Discharge Summary PROCEDURES PERFORMED DURING STAY: primary low transverse section ADMITTING DIAGNOSES: 1. pre-eclampsia with severe features 2. morbid obesity BMI >50 DISCHARGE DIAGNOSES: 1. pre-eclampsia with severe features 2. morbid obesity BMI >50 3. arrest of descent 4. anemia COMPLICATIONS/CHIEF COMPLAINT: High Bp. HISTORY OF PRESENT ILLNESS/HOSPITAL COURSE: Dane is a 23yo s/p uncomplicated PLTCS at 23:27 on 08/06/2019 for arrest of descent while undergoing IOL for pre-eclampsia with severe features based on severe range bp's (which normalized with initiation of IV MgSO4) and urine:protein of 6.36 as well as creatinine 0.99 and uric acid 7.8. Significantly, her BMI is 50. She received 24hr IV MgSO4 on L&D, and is doing well day # 4. EBL was 700ml. She had an overall benign course. BP has been normotensive to mild range after initiation of oral labetalol, she has remained afebrile, hemodynamically stable with no evidence of infection. No s/sx of worsening pre-E. Creatinine has been improving and plt stable. DISCHARGE MEDICATIONS: Please see below. ALLERGIES: Please see below. PHYSICAL EXAMINATION ON DISCHARGE: VITAL SIGNS: Within normal limits, afebrile. Alert and oriented times three. Abdomen: Obese. Fundus firm at U-1. Soft, appropriately tender to palpation with NO rebound/guarding. Pfannensteil incision is covered by clean/dry optifoam dressing with tiny area of strikethrough in the center of the dressing, unchanged. Extremities: no pain with palpation of calves, 1+ edema of BLE LABORATORY DATA: Please see below. 08/05: starting H/H 16.7/36.8, plt 272 starting creatinine 0.99 LFTs wnl 08/06: WBC 14.1, H/H 10.5/33.4, plt 247 creatinine 1.16 LFTs wnl 08/07: WBC 17.6, H/H 10.4/32.4, plt 252 peak creatinine 1.31 LFTs wnl 08/08: WBC 11.6, H/H 9/28.6, plt 215 creatinine 1.06 LFTs wnl 08/09 WBC 11.6, H/H 7.7/24.9, plt 234 creatinine 0.86 AST 58 ALT 47 DISPOSITION: home DISCHARGE PLAN/INSTRUCTIONS: 1. Discharge to home today 2. Follow up in 2 days for bp check in [facility] (and can make a 2wk follow up appt at that time) 3. Continue labetalol 400mg PO Q12hr. Rx to [facility] along with motrin and prn percocet for pain. Also colace for bowel regimen. And iron for anemia. 4. Regular diet 5. Pt has optifoam dressing which will stay in place for 1 week. Discussed to remove in 1 week along with steri strips. After that, keep incision clean and dry. 6. Vaginal rest 6 weeks with no heavy lifting 7. Return precautions discussed at length for pre-E sx, s/sx of infection, s/sx of DVT 8. Discussed contraception at length, patient interested in Mirena IUD which we can discuss further in the office DISCHARGE CONDITION: Stable TIME SPENT ON DISCHARGE: Greater than [address] Aissatou Sotelo MD Vital Signs/I&Os Vital Signs Date Time Temp Pulse Resp B/P (MAP) Pulse Ox O2 Delivery O2 Flow Rate FiO2 08/10/19 06:00 98.1 94 18 127/67 (87) 97 Room Air Laboratory Data Labs 24H Laboratory Tests 2 08/10/19 07:01: Nucleated Red Blood Cells % (auto) 0.0, Anion Gap 8, Glomerular Filtration Rate > 60.0, Calcium Level 7.0#L, Total Bilirubin 0.1L, Aspartate Amino Transf (AST/SGOT) 58H, Alanine Aminotransferase (ALT/SGPT) 47, Alkaline Phosphatase 100, Total Protein 5.4#L, Albumin 1.7L, Albumin/Globulin Ratio 0.46L CBC/BMP Laboratory Tests 08/10/19 07:01 Discharge Medications Scheduled Docusate Sodium (Docusate Sodium) 100 Mg Capsule, 100 MG PO BID Ibuprofen (Ibuprofen) 800 Mg Tablet, 800 MG PO Q8H Labetalol HCl (Labetalol HCl) 100 Mg Tablet, 400 MG PO Q12H No.137/Iron/Folic Acd ( Vitamin Tablet) 1 Each Tablet, 1 TAB PO DAILY, (Reported) Scheduled PRN Oxycodone/Acetaminophen (Oxycodone-Acetaminophen 5-325) 1 Each Tablet, 2 TAB PO Q6H PRN for SEVERE PAIN (PS 8-10) Allergies Coded Allergies: Contrast Media (Verified Allergy, Intermediate, rash, high fever, 08/05/19) Aissatou Sotelo MD Aug 10, 2019 08:58
[2019-08-10] MEDS ORDERED: LABETALOL 100 MG TAB PO SCH (09:00)
--- NOTE | 2019-08-10 10:35 | IPN ---
DATE OF SERVICE: 08/06/2019 This patient has requested circumcision of their male . After discussing risks and benefits of circumcision, medical and nonmedical indications, the penile block and aftercare, expressed understanding of penile block aftercare and bleeding. Signed the consent form. All questions were answered. 20-minute discussion. We await the clearance by the call center rn.
== END 2019-08-10 12:51 | disposition home or self-care (01) | DRG 772 ==
LOC: M LDO 14:50 → M LDI 17:10 → M OBS 08-07 18:58
PROVIDERS: ADMIT Obstetrics & Gynecology; ATTEND Obstetrics & Gynecology
PROC: 3E033VJ Introduction of Other Hormone into Peripheral Vein, Percutaneous Approach (ICD-10-PCS; 2019-08-05)
PROC: 10D00Z1 Extraction of Products of Conception, Low, Open Approach (ICD-10-PCS; principal; 2019-08-06)
DX: O14.14 Severe pre-eclampsia complicating childbirth (principal); Z68.43 Body mass index [BMI] 50.0-59.9, adult; Z37.0 Single live birth; Z3A.38 38 weeks gestation of pregnancy; E66.01 Morbid (severe) obesity due to excess calories; O99.214 Obesity complicating childbirth; O32.4XX0 Maternal care for high head at term, not applicable or unspecified; Z91.041 Radiographic dye allergy status

== ENCOUNTER 2019-08-16 10:40 | Inpatient (IN) | payer OTHER ==
[~2019-08-16] VITALS: Ht 170.2 cm; Wt 132.8 kg
[~2019-08-16 10:40] MED LIST: DOCU100C16 PO; IBUP80TA PO; LABE10TAB PO; PERCOCET PO; PRENTAB9 PO
[2019-08-16 11:51] LABS: BASO % 0.2 % (0.0-1.0); EOS # 0.1 10^3/uL (0.0-0.5); EOS % 0.5 % (0.0-3.0); HEMATOCRIT 29.7 % (36.0-47.0); HEMOGLOBIN 8.9 g/dl (12.0-15.5); LYMPH # 0.9 10^3/uL (1.5-5.0); LYMPH % 6.6 % (24.0-44.0); MEAN CORPUSCULAR HEMOGLOBIN 27.2 pg (27.0-33.0); MEAN CORPUSCULAR VOLUME 90.8 fl (80.0-96.0); MONO # 0.4 10^3/uL (0.0-0.8); MONO % 3.3 % (0.0-5.0); NEUTROPHILS # 11.3 10^3/uL (1.5-8.5); NEUTROPHILS % 87.4 % (36.0-66.0); PLATELET COUNT, AUTOMATED 385 10^3/uL (150-450); RED BLOOD COUNT 3.27 10^6/uL (4.00-5.40)
[2019-08-16 12:01] LABS: INR 1.16; PROTHROMBIN TIME 14.5 SECONDS (11.8-14.0)
[2019-08-16 12:19] LABS: ALBUMIN 2.4 GM/DL (3.2-5.2); ALT/SGPT 24 U/L (12-78); BILIRUBIN,DIRECT < 0.1 MG/DL (0.0-0.2); BILIRUBIN,TOTAL 0.3 MG/DL (0.2-1.0); BLOOD UREA NITROGEN 9 MG/DL (7-18); CALCIUM LEVEL 8.7 MG/DL (8.5-10.1); CARBON DIOXIDE LEVEL 24 MEQ/L (21-32); CHLORIDE LEVEL 107 MEQ/L (98-107); CK-MB VALUE MASS 4.3 NG/ML (<3.6); CPK CREATINE PHOSPHOKINASE 298 U/L (26-192); CREATININE FOR GFR 1.15 MG/DL (0.55-1.30); GLOMERULAR FILTRATION RATE > 60.0 (>60); GLUCOSE, FASTING 95 MG/DL (70-100); MB/CK RELATIVE INDEX 1.44 (< OR =4); NT-PRO BNP 1739 PG/ML (<125); POTASSIUM SERUM 4.7 MEQ/L (3.5-5.1); SODIUM LEVEL 142 MEQ/L (136-145); TOTAL PROTEIN 6.2 GM/DL (6.4-8.2); TROPONIN I < 0.02 NG/ML (< 0.10)
--- NOTE | 2019-08-16 12:22 | REP ---
Chest x-ray: Two views. History: Dyspnea and cough . Comparison study: No comparison study . Findings: The lungs are well inflated and free of infiltrate. The pleural angles are sharp. The heart size is normal. Pulmonary vasculature is not increased. No significant bony abnormality is seen. Impression: Negative chest x-ray. Electronically Signed by Ramon Magana MD 08/16/2019 12:14 P
[2019-08-16 13:10] LABS: INFLUENZA A AMPLIFICATION NEGATIVE (NEGATIVE); INFLUENZA B AMPLIFICATION NEGATIVE (NEGATIVE)
[2019-08-16 13:53] LABS: D-DIMER QUANT > 4000 ng/ml (<500)
[2019-08-16] MEDS ORDERED: diphenhydrAMINE INJ 50MG/ML VIAL (J1200) IV ONE (14:30)
[2019-08-16] MEDS ORDERED: methylPREDNISolone INJ 125 MG/2 ML VIAL (J2930) IV ONE (14:30)
[2019-08-16] MEDS ORDERED: NIFEdipine 30 MG XL TAB PO ONE (14:45)
[2019-08-16] MEDS ORDERED: ISOVUE-370 76% 100ML VIAL (Q9967) As Ordered ONE (15:44)
--- NOTE | 2019-08-16 16:38 | REP ---
CT pulmonary angiogram: With IV contrast. History: Shortness of breath, recent surgery. Comparison studies: No comparison study. Contrast dose: 75 ML of Isovue [address] technique: Helical scanning is acquired and overlapping 1.5 mm and contiguous 3 mm axial images are reformatted. In addition, maximum intensity projection and multiplanar re-formation images are generated in sagittal and coronal imaging projections. CT pulmonary angiographic findings: There is good opacification in the pulmonary arterial tree. There is no CT evidence of pulmonary embolism. Thoracic aorta enhances homogeneously and is normal in caliber. There are bilateral pleural effusions, small to moderate in size. No pericardial effusion is seen. No hilar or mediastinal mass or adenopathy is observed. Pulmonary vasculature and interstitial markings appear congested, pulmonary edema pattern. No adrenal lesion is seen. The visualized upper abdominal structures are unremarkable. Bone window settings show no bony destructive lesion. Impression: No CT evidence of pulmonary embolus. Small to moderate bilateral pleural effusions. Vascular congestion and diffuse mild pulmonary edema pattern. Question volume overload versus CHF. Electronically Signed by Ramon Magana MD 08/16/2019 07:51 P
[2019-08-16] MEDS ORDERED: FUROSEMIDE 20 MG/2 ML VIAL (J1940) IV ONE (17:15)
[2019-08-16] MEDS ORDERED: COLA100C5 PO (17:30)
[2019-08-16] MEDS ORDERED: LABE20TAB PO (17:31)
[2019-08-16] MEDS ORDERED: IBUP1TAB7 PO (17:31)
[2019-08-16] MEDS ORDERED: FERR325T18 PO (17:31)
[2019-08-16] MEDS ORDERED: OXYC1TAB23 PO (17:31)
--- NOTE | 2019-08-16 18:05 | HPEPDOC ---
General Date of Admission Aug 16, 2019 at 17:01 Date of Service: Aug 16, 2019 Attending Physician: TOMÁS STEELE DO Chief Complaint The patient is a 23-year-old female s/p PLTCD for failed induction POD #9 present to ED with concern for SOB, fever, and dry cough. Source: Patient Exam Limitations: No limitations History of Present Illness patient is a 23 yo s/p PLTCD for failed induction 9 days presents to ED with concern for fever, SOB and dry cough since this AM. Patient was induced for pre-eclampsia with severe features. patient reports everything started today. she temp of 101 F at home this AM. fever defervesced without needing medication. Reports having SOB when she lays down flat, able to tole rate her normal activities without SOB. Had dry cough occasionally. Denies chest pain or leg pain. Patient is breast pumping. Patient is on labetalol 400mg TID, she forgot to take her medication this AM. patient denies being anyone who is ill recently. Home Medications Scheduled Docusate Sodium (Colace) 100 Mg Capsule, 100 MG PO TID, (Reported) Ferrous Sulfate (Ferrous Sulfate) 325 Mg Tablet, 325 MG PO BID, (Reported) Ibuprofen (Ibuprofen) 800 Mg Tablet, 800 MG PO Q8H, (Reported) Labetalol HCl (Labetalol HCl) 200 Mg Tablet, 400 MG PO TID, (Reported) RX FOR 400MG Q12H - STATES INCREASED TO 400MG TID No.137/Iron/Folic Acd ( Vitamin Tablet) 1 Each Tablet, 1 TAB PO DAILY, (Reported) Scheduled PRN Oxycodone HCl/Acetaminophen (Oxycodone-Acetaminophen 5-325) 1 Each Tablet, 1 TAB PO Q6H PRN for PAIN, (Reported) Allergies Coded Allergies: Contrast Media (Verified Allergy, Intermediate, rash, high fever, 08/05/19) Past Medical History Medical History obesity Surgical History section x 1 Social History * Smoker: Denies Alcohol: Denies Drugs: denies Recent Travel/Sick Contacts: Denies: Recent travel, Recent sick contacts Psychosocial History: No pertinent psych hx A-FIB/CHADSVASC A-FIB History Current/History of A-Fib/PAF?: No Current PO Anticoag Therapy: No Age/Risk Factor Scoring CHADSVASC: CHADSVASC Response (Comments) Value Age Risk Factor Age < 65 years old 0 Gender Risk Factor Female 1 Hx of CHF No 0 Hx of HTN No 0 Hx of Stroke/TIA/or VTE No 0 Hx of Diabetes No 0 Hx of Vascular Disease No 0 Total 1 Treatment Treatment ordered: NONE Reason Anticoagulant not given: Not indicated/[id number] Review of Systems Constitutional: Reports: Fever; Denies: Chills, Malaise, Night Sweats, Weakness, Fatigue, Weight Loss, Lethargy, Other Eyes: Denies: Pain, Vision change, Conjunctivae inflammation, Eyelid inflammation, Redness, Other ENT: Denies: Head Aches, Ear Pain, Dysphagia, Sinus Congestion, Post Nasal Drip, Sore Throat, Epistaxis, Other Symptoms Skin: Denies: Rash, Lesions, Jaundice, Bruising, Itching, Dry, Breakdown, Nail Changes, Other Pulmonary: Reports: Dyspnea, Cough; Denies: Pleuritic Chest Pain, Other Symptoms Cardiovascular: Denies: Chest Pain, Palpitations, Orthopnea, Paroxysmal Noc. Dyspnea, Edema, Lt Headedness, Other Symptoms Gastrointestinal: Denies: Nausea, Vomiting, Abdominal Pain, Diarrhea, Constipation, Melena, Hematochezia, Other Symptoms Genitourinary: Denies: Dysuria, Frequency, Incontinence, Hematuria, Retention, Other Symptoms Hematologic: Denies: Bruising, Bleeding Excessively, Petecchia, Purpura, Enlarged Lymph Nodes, Other Hematologic Musculoskeletal: Denies: Neck Pain, Back Pain, Shoulder Pain, Arm Pain, Hand Pain, Leg Pain, Foot Pain, Joint Pain, Muscle Pain, Spasms, Other Symptoms Neurological: Denies: Weakness, Numbness, Incoordination, Change in speech, Confusion, Seizures, Other Symptoms Psych: Denies: Mood Normal, Anxiety, Depression, Memory Issues, Thoughts of Self Harm, Anger, Thoughts of Harming Other, Other Psych Physical Examination General Exam: Positive: Alert, Cooperative, No Acute Distress, Mild Distress, Moderate Distress, Severe Distress, Other ENT Exam: Positive: Atraumatic, Mucous membr. moist/pink Neck Exam: Positive: Supple; Negative: JVD, thyromegaly, +2 carotid pulse wo bruit, Lymphadenopathy, Other Chest Exam: Positive: Clear to auscultation, Normal air movement; Negative: Rales, Rhonchi, Wheezing, Diminished Heart Exam: Positive: Rate Normal, Tachycardic, Regular Rhythm, Normal S1, Normal S2; Negative: Murmurs, Rubs Abdomen Exam: Positive: Normal bowel sounds, Soft, Other (incision well h ealed); Negative: Tenderness, Hepatospenomegaly Extremity Exam: Positive: Normal pulses; Negative: Clubbing, Cyanosis, Edema Skin Exam: Positive: Nl turgor and temperature; Negative: Breakdown, Lesion Neuro Exam: Positive: Normal Gait, Normal Speech, Cranial Nerves 3-12 NL, Reflexes 2+ Vital Signs Vital Signs Date Time Temp Pulse Resp B/P (MAP) Pulse Ox O2 Delivery O2 Flow Rate FiO2 08/16/19 13:48 99.6 105 20 156/89 (111) 100 Room Air Laboratory Data Labs 24H Laboratory Tests 2 08/16/19 11:18: Urine Color YELLOW, Urine Appearance CLEAR, Urine pH 7.0, Urine Specific Salvo 1.004, Urine Protein NEGATIVE, Urine Glucose (UA) NEGATIVE, Urine Ketones NEGATIVE, Urine Blood 3+H, Urine Nitrite NEGATIVE, Urine Bilirubin NEGATIVE, Urine Urobilinogen 0.2, Urine Leukocyte Esterase 3+H, Urine WBC (Auto) 44H, Urine RBC (Auto) 8H, Urine Hyaline Casts (Auto) 0, Urine Bacteria (Auto) 2+H, Urine Squamous Epithelial Cells 1, Urine Sperm (Auto) 08/16/19 11:41: Immature Granulocyte % (Auto) 2.0, Neutrophils (%) (Auto) 87.4H, Lymphocytes (%) (Auto) 6.6L, Monocytes (%) (Auto) 3.3, Eosinophils (%) (Auto) 0.5, Basophils (%) (Auto) 0.2, Neutrophils # (Auto) 11.3H, Lymphocytes # (Auto) 0.9L, Monocytes # (Auto) 0.4, Eosinophils # (Auto) 0.1, Basophils # (Auto) 0.0, Nucleated Red Blood Cells % (auto) 0.0, Prothrombin Time 14.5H, Prothromb Time International Ratio 1.16, D-Dimer, Quantitative > 4000H, Anion Gap 11, Glomerular Filtration Rate > 60.0, Lactic Acid Level 1.3, Calcium Level 8.7, Total Bilirubin 0.3, Direct Bilirubin < 0.1, Aspartate Amino Transf (AST/SGOT) 16, Alanine Aminotransferase (ALT/SGPT) 24, Alkaline Phosphatase 119H, Total Creatine Kinase 298H, Creatine Kinase MB 4.3H, Creatine Kinase MB Relative Index 1.44, Troponin I < 0.02, SF-Bft-G-Type Natriuretic Peptide 1739H, Total Protein 6.2L, Albumin 2.4L, Albumin/Globulin Ratio 0.63L 08/16/19 11:47: Influenza Type A (RT-PCR) NEGATIVE, Influenza Type B (RT-PCR) NEGATIVE CBC/BMP Laboratory Tests 08/16/19 11:41 Microbiology Microbiology 08/16/19 Respiratory Virus Panel (PCR) ([facility]) - Final, Complete 08/16/19 Blood Culture, Received Pending 08/16/19 Blood Culture, Received Pending 08/16/19 Urine Culture, Received Pending Assessment/Plan patient is a 23 yo pod #9 with s/s concerning for pulmonary edema likely secondary to fluid overload. Plan / VTE VTE Prophylaxis Ordered?: Yes (SCDs while in bed) VTE Exclusion Mechanical Proph: Low Risk for VTE Plan Plan admit to medical surgical unit for diurese and monitoring. start with lasix 20mg IV, will continue with po lasix continue with labetalol may need to add nifedipine for maintenance therapy vitals q 4hrs with strict I&O regular diet IS while in bed SCDs while in bed disposition pending patient response to therapy. Diet: Continue Current Activity: Continue Current TOMÁS STEELE DO Aug 16, 2019 18:05
[2019-08-16 20:00] VITALS: BP 125/62
[2019-08-16] MEDS ORDERED: LABETALOL 200 MG TAB PO SCH (21:00)
[2019-08-17 00:32] VITALS: BP 121/69
[2019-08-17 05:25] VITALS: BP 146/82
[2019-08-17 06:34] LABS: BLOOD UREA NITROGEN 12 MG/DL (7-18); CALCIUM LEVEL 8.2 MG/DL (8.5-10.1); CARBON DIOXIDE LEVEL 26 MEQ/L (21-32); CHLORIDE LEVEL 109 MEQ/L (98-107); CREATININE FOR GFR 0.98 MG/DL (0.55-1.30); GLOMERULAR FILTRATION RATE > 60.0 (>60); GLUCOSE, FASTING 102 MG/DL (70-100); POTASSIUM SERUM 4.4 MEQ/L (3.5-5.1); SODIUM LEVEL 142 MEQ/L (136-145)
[2019-08-17] MEDS ORDERED: NIFEdipine 30 MG XL TAB PO ONE (06:45)
[2019-08-17] MEDS: FUROSEMIDE 20 MG TAB PO SCH ×2 (06:54→16:21)
--- NOTE | 2019-08-17 07:21 | IPNPDOC ---
Text Note Date of Service The patient was seen on 08/17/19. NOTE patient is a 23 yo s/p PLTCD pod #10, admitted for symptomatic pulmonary edema HD #2. No overnight event. Patient without complaints today. Reports her pedal edema has improved. She is no longer having SOB when laying flat. She is using the IS as instructed. denies sweats/chills. patient planning not to breast feeding. vitals: normal to mild range NAD, AOX3 CTA s w/r/r s1s2 s m/g/c abd: nd, soft, nt, incision c/d/i, well healed without edema/erythema le: 1+pitting edema, no erythema/tenderness UO: 1400cc overnight, (not all voids were measured) cr: 0.98 a/p patient withh pulmonary edema HD #2, improving clinically. Start patient on lasix 20mg po BID. start on nifedipine 30mg xl. decrease labetalol to 200mg BID. Encourage frequent ambulation and use of IS. anticipate discharging patient home tomorrow if she continues to be improving. DO Valerie VS,Jesusita, I+O VS, Muralie, I+O Laboratory Tests 08/16/19 11:41 08/17/19 05:52 Vital Signs Date Time Temp Pulse Resp B/P (MAP) Pulse Ox O2 Delivery O2 Flow Rate FiO2 08/17/19 06:55 136/84 08/17/19 05:25 97.1 97 18 98 Room Air I&O- Last 24 Hours up to 6 AM 08/17/19 05:59 Intake Total 1050 ml Output Total 1400 ml Balance -350 ml TOMÁS STEELE DO Aug 17, 2019 07:21
[2019-08-17 07:59] VITALS: BP 148/83
[2019-08-17] MEDS: LABETALOL 200 MG TAB PO SCH ×2 (08:03→20:44)
[2019-08-17 12:23] VITALS: BP 142/86
[2019-08-17] MEDS: NITROFURANTOIN (MACROBID) 100 MG CAP PO SCH ×2 (13:34→20:44)
[2019-08-17] MEDS ORDERED: SLF 3 ML SYR IV PRN (14:30)
[2019-08-17 15:44] VITALS: BP 138/81
[2019-08-17 20:00] VITALS: BP 129/73
--- NOTE | 2019-08-17 20:26 | ECGEPIP ---
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
[2019-08-17] MEDS: SLF 3 ML SYR IV SCH (20:45)
[2019-08-18 04:00] VITALS: BP 120/60
[2019-08-18 05:04] LABS: BLOOD UREA NITROGEN 15 MG/DL (7-18); CALCIUM LEVEL 8.3 MG/DL (8.5-10.1); CARBON DIOXIDE LEVEL 27 MEQ/L (21-32); CHLORIDE LEVEL 110 MEQ/L (98-107); CREATININE FOR GFR 1.07 MG/DL (0.55-1.30); GLOMERULAR FILTRATION RATE > 60.0 (>60); GLUCOSE, FASTING 78 MG/DL (70-100); POTASSIUM SERUM 4.1 MEQ/L (3.5-5.1); SODIUM LEVEL 143 MEQ/L (136-145)
[2019-08-18] MEDS: SLF 3 ML SYR IV SCH (06:34)
[2019-08-18] MEDS: FUROSEMIDE 20 MG TAB PO SCH (06:34)
[2019-08-18 07:26] VITALS: BP 143/89
--- NOTE | 2019-08-18 07:45 | IPNPDOC ---
Text Note Date of Service The patient was seen on 08/18/19. NOTE patient is a 23 yo s/p PLTCD pod #11, admitted for symptomatic pulmonary edema HD #3. No overnight event. Patient without complaints today. Reports her pedal edema resolved. denies SOB/sweats/chills. vitals: normal to mild range NAD, AOX3 CTA s w/r/r s1s2 s m/g/c abd: nd, soft, nt, incision c/d/i, well healed without edema/erythema le: neg edema, no erythema/tenderness a/p patient withh pulmonary edema HD #3, improved. continue with lasix 20mg daily. cont nifedipine 30mg xl. cont labetalol 200mg BID. Encourage frequent ambulation and use of IS. d/c home today. DO GEOVANI Padilla,Jesusita, I+O VS, Fishbone, I+O Laboratory Tests 08/18/19 04:11 Vital Signs Date Time Temp Pulse Resp B/P (MAP) Pulse Ox O2 Delivery O2 Flow Rate FiO2 08/18/19 07:26 97.5 86 18 143/89 (107) 98 Room Air I&O- Last 24 Hours up to 6 AM 08/18/19 06:00 Intake Total 1740 ml Output Total 3800 ml Balance -2060 ml TOMÁS PADILLA DO Aug 18, 2019 07:45
--- NOTE | 2019-08-18 07:52 | DS.PDOC ---
Discharge Summary General Date of Admission Aug 16, 2019 at 17:01 Date of Discharge aug 16, 2019 Attending Physician: TOMÁS STEELE DO Discharge Summary PROCEDURES PERFORMED DURING STAY: [None]. ADMITTING DIAGNOSES: 1. Pulmonary edema 2. gestational hypertension 3. morbid obesity DISCHARGE DIAGNOSES: 1. pulmonary edema - resolved 2. gestational hypertension 3. morbid obesity HISTORY OF PRESENT ILLNESS: Patient admitted for symptomatic pulmonary edema 9 days status post delivery. HOSPITAL COURSE: Patient was treated with lasix IV then po. She was started on Nifedipine 30mg XL for blood pressure management. Her edema improved during her hospital stay and discharged home on hospital day #3. DISCHARGE MEDICATIONS: Lasix 20mg daily Nifedipine 30mg XL daily Labetalol 200mg BID ALLERGIES: Please see below LABORATORY DATA: Please see below. ACTIVITY: As tolerated. DIET: regular DISPOSITION: DISCHARGE HOME ITEMS TO FOLLOWUP ON ON OUTPATIENT: 1. follow up with [facility] clinic in 2 days for blood pressure check. 2. follow up with OB clinic in 1 week with an [facility] physician. DISCHARGE CONDITION: Stable TIME SPENT ON DISCHARGE: Greater than 30 minutes. Vital Signs/I&Os Vital Signs Date Time Temp Pulse Resp B/P (MAP) Pulse Ox O2 Delivery O2 Flow Rate FiO2 08/18/19 07:26 97.5 86 18 143/89 (107) 98 Room Air I&O- Last 24 Hours up to 6 AM 08/18/19 06:00 Intake Total 1740 ml Output Total 3800 ml Balance -2060 ml Laboratory Data Labs 24H Laboratory Tests 2 08/18/19 04:11: Anion Gap 6L, Glomerular Filtration Rate > 60.0, Calcium Level 8.3L CBC/BMP Laboratory Tests 08/18/19 04:11 Microbiology Microbiology 08/16/19 Respiratory Virus Panel (PCR) ([facility]ORES[facility]) - Final, Complete 08/16/19 Blood Culture - Preliminary, Resulted No growth after 24 hours . All specim... 08/16/19 Blood Culture - Preliminary, Resulted No growth after 24 hours . All specim... 08/16/19 Urine Culture - Final, Complete Discharge Medications Scheduled Docusate Sodium (Colace) 100 Mg Capsule, 100 MG PO TID, (Reported) Ferrous Sulfate (Ferrous Sulfate) 325 Mg Tablet, 325 MG PO BID, (Reported) Ibuprofen (Ibuprofen) 800 Mg Tablet, 800 MG PO Q8H, (Reported) Labetalol HCl (Labetalol HCl) 200 Mg Tablet, 400 MG PO TID, (Reported) RX FOR 400MG Q12H - STATES INCREASED TO 400MG TID No.137/Iron/Folic Acd ( Vitamin Tablet) 1 Each Tablet, 1 TAB PO DAILY, (Reported) Scheduled PRN Oxycodone HCl/Acetaminophen (Oxycodone-Acetaminophen 5-325) 1 Each Tablet, 1 TAB PO Q6H PRN for PAIN, (Reported) Allergies Coded Allergies: Contrast Media (Verified Allergy, Intermediate, rash, high fever, 08/05/19) TOMÁS STEELE DO Aug 18, 2019 07:52
[2019-08-18 07:59] VITALS: BP 143/89
[2019-08-18] MEDS: NITROFURANTOIN (MACROBID) 100 MG CAP PO SCH (07:59)
[2019-08-18] MEDS: LABETALOL 200 MG TAB PO SCH (07:59)
[2019-08-18] MEDS ORDERED: NIFEdipine 30 MG XL TAB PO SCH (09:00)
== END 2019-08-18 10:32 | disposition home or self-care (01) | DRG 776 ==
LOC: M ED 10:40 → M ED INP 17:01 → ENRESERV 08-17 04:51 → M PCU 08-17 05:24
PROVIDERS: ADMIT Obstetrics & Gynecology; ATTEND Obstetrics & Gynecology
DX: O13.5 Gestational [pregnancy-induced] hypertension without significant proteinuria, complicating the puerperium (principal); J81.1 Chronic pulmonary edema; E66.01 Morbid (severe) obesity due to excess calories; O99.215 Obesity complicating the puerperium; O99.53 Diseases of the respiratory system complicating the puerperium; Z79.899 Other long term (current) drug therapy; Z91.041 Radiographic dye allergy status